=== PATIENT | female | born 1950 | race Two or more races ===

== ENCOUNTER → 2017-10-02 12:25 | Outpatient (CLI) | payer OTHER | END | disposition home or self-care (01) | LOC: LAB 12:25 | DX: K57.30 Diverticulosis of large intestine without perforation or abscess without bleeding (principal); R74.0 Nonspecific elevation of levels of transaminase and lactic acid dehydrogenase [LDH]; E83.110 Hereditary hemochromatosis; D70.9 Neutropenia, unspecified; D51.3 Other dietary vitamin B12 deficiency anemia; D50.8 Other iron deficiency anemias; D69.59 Other secondary thrombocytopenia; K75.9 Inflammatory liver disease, unspecified; D68.4 Acquired coagulation factor deficiency; E08.65 Diabetes mellitus due to underlying condition with hyperglycemia; E03.8 Other specified hypothyroidism; R97.0 Elevated carcinoembryonic antigen [CEA]; D68.8 Other specified coagulation defects; R97.8 Other abnormal tumor markers ==

== ENCOUNTER 2017-10-09 08:00 | Outpatient (CLI) | payer OTHER | END 2017-10-09 08:18 | disposition home or self-care (01) | LOC: SONOGRAMA 08:00 → MAMO-SONO 08:00 → SONOGRAMA 08:18 | DX: K57.30 Diverticulosis of large intestine without perforation or abscess without bleeding (principal) ==

== ENCOUNTER 2017-10-09 09:21 | Outpatient (CLI) | payer OTHER | END 2017-10-09 16:30 | disposition home or self-care (01) | LOC: MAMO-SONO 09:21 | DX: Z12.31 Encounter for screening mammogram for malignant neoplasm of breast (principal); Z87.898 Personal history of other specified conditions; N60.81 Other benign mammary dysplasias of right breast; N60.82 Other benign mammary dysplasias of left breast; E83.110 Hereditary hemochromatosis; D70.9 Neutropenia, unspecified; D51.3 Other dietary vitamin B12 deficiency anemia; D50.8 Other iron deficiency anemias; D69.59 Other secondary thrombocytopenia; K75.9 Inflammatory liver disease, unspecified; D68.4 Acquired coagulation factor deficiency; I10 Essential (primary) hypertension; E08.65 Diabetes mellitus due to underlying condition with hyperglycemia; E03.8 Other specified hypothyroidism ==

== ENCOUNTER 2018-04-09 09:26 | Outpatient (CLI) | payer OTHER | END 2018-04-09 09:32 | disposition home or self-care (01) | LOC: MRI 09:26 | DX: I85.00 Esophageal varices without bleeding (principal); K29.30 Chronic superficial gastritis without bleeding; K74.60 Unspecified cirrhosis of liver; R16.1 Splenomegaly, not elsewhere classified | CPT/HCPCS: 74183; A9579 ==

== ENCOUNTER 2018-05-03 10:09 | Outpatient (CLI) | payer OTHER | END 2018-05-03 10:14 | disposition home or self-care (01) | LOC: LAB 10:09 | DX: E83.110 Hereditary hemochromatosis (principal); D73.2 Chronic congestive splenomegaly; D69.59 Other secondary thrombocytopenia; D70.8 Other neutropenia; D51.3 Other dietary vitamin B12 deficiency anemia; D50.8 Other iron deficiency anemias; K75.9 Inflammatory liver disease, unspecified; D68.4 Acquired coagulation factor deficiency; I10 Essential (primary) hypertension; E08.65 Diabetes mellitus due to underlying condition with hyperglycemia; E03.8 Other specified hypothyroidism; D51.8 Other vitamin B12 deficiency anemias; R97.0 Elevated carcinoembryonic antigen [CEA]; R97.8 Other abnormal tumor markers; C25.8 Malignant neoplasm of overlapping sites of pancreas; D68.8 Other specified coagulation defects; D64.89 Other specified anemias ==

== ENCOUNTER 2018-11-07 09:44 | Outpatient (CLI) | payer OTHER | END 2018-11-07 13:06 | disposition home or self-care (01) | LOC: LAB 09:44 | DX: D50.8 Other iron deficiency anemias (principal); D73.2 Chronic congestive splenomegaly; D69.59 Other secondary thrombocytopenia; D70.8 Other neutropenia; D51.3 Other dietary vitamin B12 deficiency anemia; K75.89 Other specified inflammatory liver diseases; D68.4 Acquired coagulation factor deficiency; V17.4XXA Pedal cycle driver injured in collision with fixed or stationary object in traffic accident, initial encounter; I10 Essential (primary) hypertension; E03.8 Other specified hypothyroidism; E11.9 Type 2 diabetes mellitus without complications; D51.1 Vitamin B12 deficiency anemia due to selective vitamin B12 malabsorption with proteinuria; K90.89 Other intestinal malabsorption; R97.0 Elevated carcinoembryonic antigen [CEA]; C22.9 Malignant neoplasm of liver, not specified as primary or secondary ==

== ENCOUNTER 2019-05-01 10:25 | Outpatient (CLI) | payer OTHER | END 2019-05-01 13:14 | disposition home or self-care (01) | LOC: LAB 10:25 | DX: R97.0 Elevated carcinoembryonic antigen [CEA] (principal); E83.10 Disorder of iron metabolism, unspecified; D73.2 Chronic congestive splenomegaly; D69.59 Other secondary thrombocytopenia; K75.89 Other specified inflammatory liver diseases; I10 Essential (primary) hypertension; R97.8 Other abnormal tumor markers; D70.8 Other neutropenia; D51.3 Other dietary vitamin B12 deficiency anemia ==

== ENCOUNTER 2019-11-11 09:48 | Outpatient (CLI) | payer OTHER | END 2019-11-11 09:53 | disposition home or self-care (01) | LOC: LAB 09:48 | DX: D50.8 Other iron deficiency anemias (principal); I10 Essential (primary) hypertension; V17.4XXA Pedal cycle driver injured in collision with fixed or stationary object in traffic accident, initial encounter; D70.8 Other neutropenia; E08.65 Diabetes mellitus due to underlying condition with hyperglycemia; E03.8 Other specified hypothyroidism; D51.8 Other vitamin B12 deficiency anemias; R97.0 Elevated carcinoembryonic antigen [CEA]; R97.8 Other abnormal tumor markers; C25.9 Malignant neoplasm of pancreas, unspecified; D51.3 Other dietary vitamin B12 deficiency anemia; D73.2 Chronic congestive splenomegaly; K75.89 Other specified inflammatory liver diseases; D69.59 Other secondary thrombocytopenia; D68.4 Acquired coagulation factor deficiency; E55.9 Vitamin D deficiency, unspecified; M81.0 Age-related osteoporosis without current pathological fracture; M35.3 Polymyalgia rheumatica ==

== ENCOUNTER → 2020-06-02 09:35 | Outpatient (CLI) | payer OTHER | END | disposition home or self-care (01) | LOC: LAB 09:35 | PROVIDERS: ATTEND Internal Medicine Hematology & Oncology | DX: D50.8 Other iron deficiency anemias (principal); I10 Essential (primary) hypertension; E11.9 Type 2 diabetes mellitus without complications; D69.6 Thrombocytopenia, unspecified; R70.0 Elevated erythrocyte sedimentation rate; E55.9 Vitamin D deficiency, unspecified; E03.8 Other specified hypothyroidism; R97.0 Elevated carcinoembryonic antigen [CEA]; R97.8 Other abnormal tumor markers; R77.2 Abnormality of alphafetoprotein; V17.4XXA Pedal cycle driver injured in collision with fixed or stationary object in traffic accident, initial encounter; D73.2 Chronic congestive splenomegaly; D69.59 Other secondary thrombocytopenia; D70.8 Other neutropenia; D51.3 Other dietary vitamin B12 deficiency anemia; K75.89 Other specified inflammatory liver diseases; D68.4 Acquired coagulation factor deficiency; N82.3 Fistula of vagina to large intestine ==

== ENCOUNTER 2020-11-28 09:09 | Outpatient (CLI) | payer OTHER | END 2020-11-28 09:21 | disposition home or self-care (01) | LOC: LAB 09:09 | PROVIDERS: ATTEND Internal Medicine Hematology & Oncology | DX: E11.9 Type 2 diabetes mellitus without complications (principal); I10 Essential (primary) hypertension; E03.8 Other specified hypothyroidism; R97.0 Elevated carcinoembryonic antigen [CEA]; R97.8 Other abnormal tumor markers; R77.2 Abnormality of alphafetoprotein; D70.8 Other neutropenia; D69.59 Other secondary thrombocytopenia; D51.3 Other dietary vitamin B12 deficiency anemia; E83.110 Hereditary hemochromatosis; D73.2 Chronic congestive splenomegaly; K75.89 Other specified inflammatory liver diseases; D68.4 Acquired coagulation factor deficiency; N82.3 Fistula of vagina to large intestine ==

== ENCOUNTER 2023-04-04 20:05 | Inpatient (IN) | payer OTHER ==
[~2023-04-04] VITALS: Ht 162.6 cm; Wt 79.8 kg
[~2023-04-04 20:05] MED LIST: ALDACTONE25 MG PO; ATENOLOL25 MG PO; GLIPIZIDE XL10 MG; GRALISE600 MG; JARDIANCE10 MG PO; LASIX40 MG PO; LEVOTHYROXINE112 MC1 PO; XELPROS2.5 ML OP
[2023-04-04] MEDS ORDERED: LANTUS SOL100 UNIT/1 SQ (20:27)
== END 2023-04-06 18:50 | disposition home or self-care (01) | DRG 947 ==
LOC: ER 20:05 → MEDJ 23:58
PROVIDERS: ADMIT Specialist; ATTEND Specialist
PROC: BW40ZZZ Ultrasonography of Abdomen (ICD-10-PCS; 2023-04-04)
PROC: 3E0F7SF Introduction of Other Gas into Respiratory Tract, Via Natural or Artificial Opening (ICD-10-PCS; 2023-04-04)
PROC: 0W9G3ZZ Drainage of Peritoneal Cavity, Percutaneous Approach (ICD-10-PCS; principal; 2023-04-05)
DX: R18.8 Other ascites (principal); K76.7 Hepatorenal syndrome; E87.1 Hypo-osmolality and hyponatremia; N17.8 Other acute kidney failure; K74.69 Other cirrhosis of liver; K75.4 Autoimmune hepatitis; I12.9 Hypertensive chronic kidney disease with stage 1 through stage 4 chronic kidney disease, or unspecified chronic kidney disease; E11.22 Type 2 diabetes mellitus with diabetic chronic kidney disease; N18.9 Chronic kidney disease, unspecified; E03.9 Hypothyroidism, unspecified; Z79.4 Long term (current) use of insulin; Z74.01 Bed confinement status

== ENCOUNTER 2023-04-17 13:16 | Emergency (ER) | payer OTHER ==
[~2023-04-17] VITALS: Ht 154.9 cm; Wt 76.7 kg
[~2023-04-17 13:16] MED LIST changes: +LANTUS SOL100 UNIT/1 SQ
== END 2023-04-18 09:45 | disposition home or self-care (01) ==
LOC: ER 13:16
DX: R18.8 Other ascites (principal); E11.9 Type 2 diabetes mellitus without complications; Z79.4 Long term (current) use of insulin; E78.00 Pure hypercholesterolemia, unspecified; I10 Essential (primary) hypertension; Z88.8 Allergy status to other drugs, medicaments and biological substances; K74.69 Other cirrhosis of liver; E83.118 Other hemochromatosis

== ENCOUNTER 2023-04-22 13:08 | Inpatient (IN) | payer OTHER ==
[~2023-04-22] VITALS: Ht 162.6 cm; Wt 76.7 kg
--- NOTE | 2023-04-22 14:04 | NUR ---
SE RECIBE FEMINA DE 72 ANOS ALERTA Y ORIENTADA X3 REFIERE TENER DOLOR ABDOMINAL DESDE HACE VARIOS STONE, LA MISMA REFIERE SER PACIENTE DE GORROCHATEGUI, SE PALPA ABDOMEN GELY AL TACTO, LA MISMA VERBALIZA TENER HEMATOMACROSIS, RETENCION DE LIQUIDO. PRINCE INTERNISTA ES JONES TO.
--- NOTE | 2023-04-22 15:26 | NUR ---
SE EDUCA A PTE SOBRE TX MEDICO ESTA REFIERE ENTENDER, SE ERIK MUESTRAS DE LABORATORIO UTILIZANDO MEDIDAS ASEPTICAS. SE COLCOA H/L AP TE CECELIA DE EDEMA. SE ADMINISTRA MEDICAMENTO IV EL CUAL PTE TOLERA. SE NOTIFICA ESTUDIO DE RX PENDIENTE A REALIZAR. PTE EN ESPERA DE CONUSLTA CON MEDICINA INTERNA.
== END 2023-04-26 18:40 | disposition home or self-care (01) | DRG 433 ==
LOC: ER 13:08 → MEDI 19:18
PROVIDERS: Nurse Practitioner Family; ADMIT Specialist; ATTEND Specialist
PROC: 0W9G3ZZ Drainage of Peritoneal Cavity, Percutaneous Approach (ICD-10-PCS; principal; 2023-04-23)
DX: K74.69 Other cirrhosis of liver (principal); N39.0 Urinary tract infection, site not specified; K75.4 Autoimmune hepatitis; E11.9 Type 2 diabetes mellitus without complications; Z79.4 Long term (current) use of insulin; E03.9 Hypothyroidism, unspecified; I10 Essential (primary) hypertension; Z20.822 Contact with and (suspected) exposure to COVID-19